=== PATIENT | female | born 1965 | race Two or more races ===

== ENCOUNTER 2024-10-19 13:36 | Outpatient (RCR) | payer MEDICAID, SELFPAY ==
--- NOTE | 2024-10-19 14:15 | PTNOTE_ITS ---
PT OP Initial Eval Patient Information Outpatient Physical Therapy Treatment Date: 10/19/24 Visit Reasons: pain right shoulder Medical Diagnosis: M75.31; M25.511 Treatment Dx #1: Right Shoulder Pain Treatment Dx #2: Right Shoulder Mobility Deficits Start of Care: 10/19/24 Date of Onset: 3 months ago Smoking Status Smoking Status: Never smoker Initial Assessment Subjective: Pt is a 59 y/o female reports of right shoulder pain (06/29) ~ 3 months ago after she hurt her shoulder at work. Pt has limitation with sleeping, chores, self care, cooking, cleaning, and work duties. 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 Pt will not benefit from physical therapy at this time. Recommend shoulder MRI to help rule in/out nature of pain. Pt was evaluated and d/c from care; thank you for your referrals. Short Term and Nursing Home Goals 1) Eval and D/C 2) Recommend shoulder MRI Treatment Plan Frequency and Duration: 1x Certification Dates: 10/19/24 to 01/17/25 Procedure Charges OP PT Eval Mod Complex 30 minutes: Yes
== END 2024-10-20 23:59 | disposition home or self-care (01) ==
LOC: CPTX 13:36
PROVIDERS: PCP Registered Nurse Community Health; Referring Provider Registered Nurse Community Health; Visit Provider Registered Nurse Community Health
DX: M25.511 Pain in right shoulder (principal); R53.1 Weakness; M75.31 Calcific tendinitis of right shoulder
CPT/HCPCS: 97162

== ENCOUNTER → 2024-11-13 | Outpatient (CLI) | payer MEDICAID, SELFPAY | END | disposition home or self-care (01) | PROVIDERS: PCP Registered Nurse Community Health; Referring Provider Registered Nurse Community Health; Visit Provider Registered Nurse Community Health | DX: Z53.8 Procedure and treatment not carried out for other reasons (principal) ==

== ENCOUNTER → 2025-01-18 | Outpatient (CLI) | payer MEDICAID, SELFPAY ==
--- NOTE | 2025-01-18 13:15 | XR_ITS ---
MRI shoulder, right, without contrast. Date and time: January 18, 2025 1247 hours INDICATIONS: Right shoulder pain 2 years Technique: Multiple axial, sagittal and coronal sections of the shoulder have been obtained. Siemens high-resolution 1.5 Saray MRI scanner is utilized. Axial fat-suppressed sections, TR 2350, TE 18 T2-weighted coronal fat-saturated images, TR 3500, TE 7100 T1-weighted coronal images, TR 500, TE 15 T2-weighted sagittal fat-saturated images, TR 3500, TE 57 T1-weighted sagittal sections, TR 504, TE 13. Findings: Supraspinatus tendon insertion is intact. Infraspinatus tendon insertion is intact. Subscapularis insertion is intact. Subscapularis bursa is not seen Long head of the biceps is in the bicipital groove. No definite tear of the biceps superior labral anchor is seen. Retraction of the musculotendinous junction of the rotator cuff is not seen . Tendinosis pattern is prominent. Distance between the acromium and humeral head is 8.5 mm Atrophy of the supraspinatus muscle is moderate. Atrophy of the infraspinatus muscle is moderate. Sagittal sections demonstrate a horizontal acromion. Acromioclavicular joint demonstrates mild osteoarthritis . Osacromiale is not identified. Anterior superior labral tears. Bony glenoid fossa on the sagittal sections does not demonstrate osseous defect. Occult fracture or area of avascular necrosis is not seen. Acromioclavicular joint separation is not visible. Defect in the posterolateral margin of the humeral head is not seen Impression: Right shoulder calcific tendinitis Significant rotator cuff tendinosis Anterior superior labral tears
== END | disposition home or self-care (01) ==
PROVIDERS: PCP Registered Nurse Community Health; Referring Provider Registered Nurse Community Health; Visit Provider Registered Nurse Community Health
DX: M75.31 Calcific tendinitis of right shoulder (principal); S43.431A Superior glenoid labrum lesion of right shoulder, initial encounter; X58.XXXA Exposure to other specified factors, initial encounter
CPT/HCPCS: 73221

== ENCOUNTER 2025-05-10 08:45 | Emergency (ER) | payer MEDICAID, SELFPAY ==
[2025-05-10 08:46] VITALS: BMI 32.9
[2025-05-10 08:54] VITALS: BP 138/82; PULSE 84; RESP 16; TEMP 37.2; O2SAT 97
--- NOTE | 2025-05-10 08:57 | PD.EDFALL ---
ED Fall Injury RME/HPI General Chief Complaint: Ankle/Foot Injury Stated Complaint: LEFT ANKLE INJURY Time Seen by Provider: 05/10/25 08:49 Arrival date/time: 05/10/25 08:45 Limitations: no limitations RME / HPI RME / HPI Narrative: DR. LISS DESAI ED EVALUATION: 60-year-old female with a past medical history of type 2 diabetes mellitus presents to the ED accompanied by her with left ankle pain following a fall while walking. Patient reports she tripped and fell but did not lose consciousness. She was assisted by a friend who helped her up. She is currently able to walk with pain. Denies head trauma or other injuries. Social history is negative for smoking, alcohol, or drug use. No known allergies. Related Data Previous Rx's ?Medication ?Instructions ?Recorded naproxen 500 mg tablet 500 mg PO BID PRN pain #30 tabs 07/06/19 hydrocodone 5 mg-acetaminophen 325 1 tab PO Q6H PRN pain #14 tabs 07/25/ mg tablet (Penrose) Allergies Allergy/AdvReac Type Severity Reaction Status Date / Time No Known Allergies Allergy Verified 05/10/25 08:48 Review of Systems Review of Systems Systems Reviewed: All systems reviewed, normal except as documented Past Medical History Past Medical History ENDOCRINE: Positive Diabetes Mellitus Type 2 Social History SMOKING STATUS: Never smoker SUBSTANCE USE: does not use ALCOHOL: Never ED Exam General Limitations: Present no limitations General appearance: Present alert and in no apparent distress Head Head exam: Present atraumatic, normocephalic and normal inspection Eye Eye exam: Present normal appearance, PERRL and EOMI ENT ENT exam: Present normal exam, normal oropharynx and mucous membranes moist Neck Neck exam: Present normal inspection, full ROM and trachea midline Chest Chest inspection: Present normal inspection and symmetric chest wall rise Respiratory Respiratory exam: Present normal lung sounds bilaterally Cardiovascular Cardiovascular exam: Present regular rate, normal rhythm and normal heart sounds Abdominal Exam Abdominal exam: Present soft and normal bowel sounds; Absent distention, tenderness, guarding, rebound or rigidity Extremities Exam Extremities exam: Present other (abrasion to the left lower leg; left ankle tenderness/ pain/ diminished ROM; NV is intact; no left knee or left hip involved and right extremity is also not involved, 2+ DP pulses bilateral lower extremity symmetric intact.) Back Exam Back exam: Present normal inspection and full ROM Neurological Exam Neurological exam: Present alert, oriented X3 and CN II-XII intact Psychiatric Psychiatric exam: Present normal affect and normal mood Skin Skin exam: Present warm, dry, intact and normal color Course Quality Measures none Orders Category Date Time Status Splint / Immobilizer STAT Care 05/10/25 14:29 Completed XR ankle comp LT min 3V Stat Exams 05/10/25 08:57 Completed XR tibia fibula LT 2V Stat Exams 05/10/25 08:57 Completed CBC Stat Lab 05/10/25 11:03 Completed CMP [Comprehensive Metabolic Panel] Stat Lab 05/10/25 11:03 Completed INR [Prothrombin Time with INR] Stat Lab 05/10/25 11:03 Completed Ketorolac Inj [Toradol Inj] Med 05/10/25 08:56 Discontinued 15 mg IM X1 ONE TET,DIP/PERT AC (Adult)-Tdap [Boostrix Adult (Tdap) Med 05/10/25 08:57 Discontinued Vacc] 0.5 ml IMI .ONCE ONE Vital Signs Vital signs: Vital Signs Temperature 99.0 F 05/10/25 08:54 Pulse Rate 84 05/10/25 08:54 Respiratory Rate 16 05/10/25 08:54 Blood Pressure 138/82 H 05/10/25 08:54 Pulse Oximetry (%) 97 05/10/25 08:54 Oxygen Delivery Method Room Air 05/10/25 08:54 Fall MDM Narrative MDM Narrative:: Kim Hernandez am scribing for and in the presence of Dr. Little. Patient is a 60-year-old female with medical history notable for diabetes is in emergency room with concerns for left lower leg pain after having had sustained a fall. Vital signs and exam as listed. Patient states that she did not have any prodromal symptoms prior to the fall, took a misstep and fell. Concern for fracture dislocation, soft tissue injury. Ordered medication for symptom relief, x-rays of the affected extremity. X-ray of the left lower extremity with evidence of trimalleolar fractures with mild ankle subluxation. Patient is neurovascularly intact. Given that we do not have orthopedic surgery coverage nor podiatry will initiate transfer. Will also place patient in a posterior short leg splint with stirrup. Transfer center discussed case with [facility] Dr. Alejandre, patient was accepted for transfer ED to ED. Patient data External records reviewed:: [facility] previous records Clinical information provided by:: patient and spouse Social determinants that could affect healthcare access:: none Patient has the following chronic illnesses:: type 2 diabetes mellitus How is presenting disease/condition affected by chronic disease/condition?: uneffected by Evaluation data The following diagnostics were reviewed and interpreted by me:: radiology exam(s) Lab and/or radiology exams considered but not ordered:: none Interpretation Summary: Procedure(s): XR tibia fibula LT 2V Accession Number(s): [id number] cc: Kurt Onofre MD; NO PRIMARY/FAMILY,PHYSICIAN; Asha Little MD~ Examination: Tibia-Fibula, left , 2 views Technique: Tibia-fibula AP lateral 2 views Date and time of exam: May 10, 2025 at 0947 hours INDICATIONS: Patient fell today with injury to the ankle, ankle pain. FINDINGS: Trimalleolar fractures with mild ankle subluxation Mid and proximal shafts of the tibia fibula intact IMPRESSION: Please see the ankle report for description trimalleolar fractures and ankle subluxation Dictated By: Kurt Onofre MD Procedure(s): XR ankle comp LT min 3V Accession Number(s): [id number] cc: Kurt Onofre MD; NO PRIMARY/FAMILY,PHYSICIAN; Asha Little MD~ EXAMINATION: Ankle, left 3 views . Technique: Ankle AP, oblique, lateral 3 views Date and time of exam: May 10, 2025 0947 hours INDICATIONS: Patient fell today with injury to the ankle, ankle pain. FINDINGS: Acute comminuted medial malleolar fracture, 5 mm offset of the main fracture fragments Acute fracture distal fibular shaft, up to 6 mm separation of the main fracture fragments Ankle subluxation with the distal articulating surface of the tibia mildly displaced medially relative to the dome the talus Suspicious for nondisplaced posterior malleolar fracture IMPRESSION: Trimalleolar fractures with mild ankle subluxation Dictated By: Kurt Onofre MD Medications / Prescriptions Medications or Prescriptions considered but not ordered:: none Medication administrations:: Medication Administration History Discontinued Medications Diphtheria/Tetanus/Acell Pertussis (Diphth,Pertuss(Acell),Tet Vac 0.5 Ml Syr- Adult) 0.5 ml IMi .ONCE ONE Stop: 05/10/25 08:58 Last Admin: 05/10/25 09:13 Dose: 0.5 ml Documented By: DODIE Ketorolac Tromethamine (Ketorolac Inj 60 Mg/2 Ml Vial) 15 mg IM X1 ONE Stop: 05/10/25 08:57 Last Admin: 05/10/25 09:10 Dose: 15 mg Documented By: DODIE see above Consultations Consultation(s) initiated? (list below): Yes Consultation #1 (Physician, Specialty, Details): See narrative above. Diagnosis Fall Differential Diagnosis: other (Left ankle sprain, distal fibula fracture, and soft tissue contusion.) Most likely diagnosis given after review of the tests above:: Trimalleolar left ankle fracture Admission Indicated Admission indicated?: not indicated Explain why admission is indicated or not indicated:: Patient needs higher level of care and will be transferred. Admission Request Was there a request for admission?: No Disposition Plan Disposition Plan: Transfer Critical Care Time Critical Care Time Critical Care Time: Yes Total Critical Care Time (min.): 45 Attestation: The high probability of sudden, clinically significant deterioration in the patient?s condition required the highest level of my preparedness to intervene urgently. The services I provided to this patient were to treat and/or prevent clinically significant deterioration. Services included the following: chart data review, reviewing nursing notes and/or old charts, documentation time, business analysis consultant collaboration regarding findings and treatment options, medication orders and management, direct patient care, vital sign assessments and ordering, interpreting and reviewing diagnostic studies and lab tests. Aggregate critical care time includes only time during which I was engaged in work directly related to the patient?s care, as described above, whether at bedside or elsewhere in the Emergency Department. It did not include time spent performing other reported procedures or the services of residents, students, nurses or physician assistants. Discharge Plan Plan Patient Disposition: [facility] [place] Facility Pt Being Transferred to: [facility] Service Needed for Transfer: Orthopedics Prescriptions/Referrals Prescriptions/Med Rec: No Action naproxen 500 mg tablet 500 mg PO BID PRN (Reason: pain) Qty: 30 0RF hydrocodone-acetaminophen [[place]rose] 5-325 mg tablet 1 tab PO Q6H MDD 3 PRN (Reason: pain) Qty: 14 0RF Referrals: No Primary/Family,Physician [Primary Care Provider] - In 1 week Problem List Clinical Impression: Trimalleolar fracture of left ankle Patient/Caregiver Discharge Instructions Print Language: Nigerien Stand Alone Forms: Cherelle Award Info., Patient Portal Info Letter
[2025-05-10] MEDS: KETOROLAC INJ 60 MG/2 ML VIAL 15 MG IM (09:10)
[2025-05-10] MEDS: DIPHTH,PERTUSS(ACELL),TET VAC 0.5 ML SYR- ADULT IMi (09:13)
--- NOTE | 2025-05-10 11:20 | PC.CC ---
Addendum entered by Talya Sprague RN 05/10/25 17:14: 1712 received call from [facility] at [facility] for extension of the peanut picker. New peanut picker time is 1830. Addendum entered by Talya Sprague RN 05/10/25 15:35: 1534 called [facility], spoke to Summer and informed peanut picker time is 1730. Addendum entered by Talya Sprague RN 05/10/25 15:29: 1520 sent paperwork to [facility] through [employer]. Called [facility], spoke to [facility] and set up the transport. The peanut picker time is 1730. Addendum entered by Talya Sprague RN 05/10/25 15:24: 1500 transfer packet is complete with CD inside including all signatures. Notified bedside nurse of the transfer packet and number to call for report. Informed Dr. Little, charge nurse and pt to be NPO per Dr. Alejandre orders. [address] Little pt is accepted at [facility] for ER to ER. Addendum entered by Talya Sprague RN 05/10/25 15:22: [address] Alejandre wants the pt to be NPO. Addendum entered by Talya Sprague RN 05/10/25 14:14: 1402 received call from [facility] at [facility] that pt is accepted. Accepted by Dr. Alejandre for ER to ER transfer. Call report at [phone]. Addendum entered by Talya Sprague RN 05/10/25 13:21: 1320 Called [facility], spoke to Summer and initiated the transfer. Addendum entered by Talya Sprague RN 05/10/25 13:19: 1318 called [facility] to initiated the transfer, left VM. Addendum entered by Talya Sprague RN 05/10/25 13:14: 1314 images pushed over to [facility] via [employer]. Original Note: 1300 clinicals sent to [facility] and [facility] TC. [address] Little that pt needs to be transferred for trimalleolar fractures and ankle subluxation needs podiatry services.
[2025-05-10 11:42] LABS: Basophils # (Auto) 0.0 Thou/mm3 (0.0-0.2); Basophils % (Auto) 0 % (0-2.5); Eosinophils # (Auto) 0.2 Thou/mm3 (0.0-0.5); Eosinophils % (Auto) 2 % (0-10); Hematocrit 42.0 % (36.0-46.0); Hemoglobin 13.7 g/dL (12.0-16.0); Immature Granulocytes Auto 0.05 Thou/mm3 (0.00-0.00); Lymphocytes # (Auto) 1.7 Thou/mm3 (1.0-4.8); Lymphocytes % (Auto) 15 % (10-50); Mean Corpuscular HGB Conc 32.6 g/dl (31.0-37.0); Mean Corpuscular Hemoglobin 30.4 pg (25.0-35.0); Mean Corpuscular Volume 93 fL (80-100); Monocytes # (Auto) 0.7 Thou/mm3 (0.0-0.8); Monocytes % (Auto) 6 % (0-12); Neutrophils # (Auto) 8.8 Thou/mm3 (1.8-7.7); Neutrophils % (Auto) 77 % (37-80); Nucleated Red Blood Cell # 0.00 Thou/mm3 (0.00-0.00); Nucleated Red Blood Cell % 0 /100 WBC (0); Platelet Count 179 Thou/mm3 (140-440); RDW Standard Deviation 48.4 fL (36.4-46.3); Red Blood Count 4.51 Miln/mm3 (4.00-5.20); White Blood Count 11.4 Thou/mm3 (3.6-11.0)
[2025-05-10 12:01] LABS: INR 1.0 (0.9-1.3); Prothrombin Time 10.9 Seconds (9.0-12.2)
[2025-05-10 12:05] LABS: Alanine Aminotransferase 33 U/L (10-49); Albumin, Serum 4.5 gm/dL (3.4-4.8); Albumin/Globulin Ratio 1.8 (1.2-2.2); Alkaline Phosphatase 92 U/L (46-116); Anion Gap 10 (7-16); Aspartate Amino Transferase 26 U/L (0-34); BUN/Creatinine Ratio 14 Ratio (12-20); Bilirubin,Total 0.9 mg/dL (0.3-1.2); Blood Urea Nitrogen 11 mg/dL (9-23); Calcium 10.1 mg/dL (8.3-10.6); Calcium (Corrected) 10.1 mg/dL (8.5-10.1); Carbon Dioxide 27.7 mMol/L (20.0-31.0); Chloride 104 mMol/L (98-107); Creatinine (Component) 0.8 mg/dL (0.6-1.3); Estimated Creatinine Clearance 74.0 mL/min (>60); Globulin 2.5 gm/dL (2.3-3.5); Glucose 117 mg/dL (74-106); Osmolality,Calculated 283 (275-295); Potassium 4.2 mMol/L (3.4-5.1); Sodium 142 mMol/L (136-145); Total Protein 7.0 gm/dL (5.7-8.2); eGFR > 60 See Note
[2025-05-10 16:05] VITALS: BP 146/94; PULSE 87; RESP 19; O2SAT 97
--- NOTE | 2025-05-10 16:18 | PC.NURSE ---
TELEPHONE REPORT GIVEN TO DANNIELLE OSEI AT [facility].
[2025-05-10 17:57] VITALS: BP 146/81; PULSE 89; RESP 18; TEMP 36.6; O2SAT 96
== END 2025-05-10 18:30 | disposition short-term general hospital (02) ==
PROVIDERS: Emergency Provider Emergency Medicine
DX: S82.852A Displaced trimalleolar fracture of left lower leg, initial encounter for closed fracture (principal); E11.9 Type 2 diabetes mellitus without complications; Z23 Encounter for immunization; W01.0XXA Fall on same level from slipping, tripping and stumbling without subsequent striking against object, initial encounter
CPT/HCPCS: 29515; 36415; 73590; 73610; 80053; 85025; 85610; 90471; 90715; 99283; J1885

== ENCOUNTER 2025-08-09 14:42 | Emergency (ER) | payer MEDICAID, SELFPAY ==
[2025-08-09 14:43] VITALS: BMI 30.1
[2025-08-09 15:03] VITALS: BP 113/73; PULSE 107; RESP 18; TEMP 36.9; O2SAT 96
--- NOTE | 2025-08-09 15:26 | XR_ITS ---
EXAMINATION: Ankle, left 3 views. Technique: Ankle AP, oblique, lateral 3 views Date and time of exam: August 09, 2025, 1547 hours, comparison May 10, 2025 INDICATIONS: Painful ankle 3 months post surgery. FINDINGS: Operative reduction internal fixation of bimalleolar fractures with partial healing Bone detail appears significantly reduced around the fibular fracture IMPRESSION: Consider CT scan ankle follow-up to exclude osteomyelitis involving the distal fibular shaft
[2025-08-09 16:02] LABS: Lactate (Lactic Acid) 1.0 mMol/L (0.4-2.0)
[2025-08-09 16:14] LABS: Basophils # (Auto) 0.0 Thou/mm3 (0.0-0.2); Basophils % (Auto) 0 % (0-2.5); Eosinophils # (Auto) 0.3 Thou/mm3 (0.0-0.5); Eosinophils % (Auto) 4 % (0-10); Hematocrit 36.7 % (36.0-46.0); Hemoglobin 11.6 g/dL (12.0-16.0); Immature Granulocytes Auto 0.02 Thou/mm3 (0.00-0.00); Lymphocytes # (Auto) 1.8 Thou/mm3 (1.0-4.8); Lymphocytes % (Auto) 25 % (10-50); Mean Corpuscular HGB Conc 31.6 g/dl (31.0-37.0); Mean Corpuscular Hemoglobin 27.9 pg (25.0-35.0); Mean Corpuscular Volume 88 fL (80-100); Monocytes # (Auto) 0.6 Thou/mm3 (0.0-0.8); Monocytes % (Auto) 8 % (0-12); Neutrophils # (Auto) 4.4 Thou/mm3 (1.8-7.7); Neutrophils % (Auto) 62 % (37-80); Nucleated Red Blood Cell # 0.00 Thou/mm3 (0.00-0.00); Nucleated Red Blood Cell % 0 /100 WBC (0); Platelet Count 287 Thou/mm3 (140-440); RDW Standard Deviation 47.1 fL (36.4-46.3); Red Blood Count 4.16 Miln/mm3 (4.00-5.20); White Blood Count 7.0 Thou/mm3 (3.6-11.0)
[2025-08-09 16:27] LABS: INR 1.0 (0.9-1.3); Partial Thromboplastin Time 29.3 Seconds (22.0-36.0); Prothrombin Time 10.6 Seconds (9.0-12.2)
[2025-08-09 16:28] LABS: Alanine Aminotransferase 20 U/L (10-49); Albumin, Serum 4.6 gm/dL (3.4-4.8); Albumin/Globulin Ratio 1.4 (1.2-2.2); Alkaline Phosphatase 97 U/L (46-116); Anion Gap 10 (7-16); Aspartate Amino Transferase 23 U/L (0-34); BUN/Creatinine Ratio 20 Ratio (12-20); Bilirubin,Total 0.4 mg/dL (0.3-1.2); Blood Urea Nitrogen 12 mg/dL (9-23); C-Reactive Protein 2.8 mg/dL (0.0-0.9); Calcium 9.6 mg/dL (8.3-10.6); Calcium (Corrected) 9.6 mg/dL (8.5-10.1); Carbon Dioxide 26.3 mMol/L (20.0-31.0); Chloride 105 mMol/L (98-107); Creatinine (Component) 0.6 mg/dL (0.6-1.3); Estimated Creatinine Clearance 98.0 mL/min (>60); Globulin 3.2 gm/dL (2.3-3.5); Glucose 187 mg/dL (74-106); Osmolality,Calculated 285 (275-295); Potassium 4.1 mMol/L (3.4-5.1); Procalcitonin 0.04 ng/ml (0.0-0.49); Sodium 141 mMol/L (136-145); Total Protein 7.8 gm/dL (5.7-8.2); eGFR > 60 See Note
--- NOTE | 2025-08-09 16:53 | EDNOTE_ITS ---
Lower Extremity Injury RME/HPI General Chief Complaint: Ankle/Foot Injury Stated Complaint: L ANKLE PAIN Time Seen by Provider: 08/09/25 16:31 Arrival date/time: 08/09/25 14:42 60-year-old female patient with significant history of diabetes mellitus, came in for evaluation regarding wound check. Patient had 2 surgeries [id number] for bimalleolar fracture left ankle, in [place], since then patient wound is not completely healed, this time associated with pain and discomfort. Patient is not having any fever. Was seen by orthopedic surgeon who did her last surgery, more than a week ago and was advised to go to tower air traffic control specialist. Currently patient is not taking antibiotic. Patient also ran out of pain medication. No other complaints noted. Related Data Previous Rx's ?Medication ?Instructions ?Recorded naproxen 500 mg tablet 500 mg PO BID PRN pain #30 t abs 07/06/19 hydrocodone 5 mg-acetaminophen 325 1 tab PO Q6H PRN pa in #14 tabs 07/25/19 mg tablet ([place]) acetaminophen 300 mg-codeine 30 mg 1 tab PO TID PRN pa in #20 tabs 08/09/25 tablet sulfamethoxazole 800 1 tab PO BID #14 tabs mg-trimethoprim 160 mg tablet (Bactrim DS) Allergies Allergy/AdvReac Type Severity Reaction Status Date / Time No Known Allergies Allergy Verified 08/09/25 14:45 Review of Systems Review of Systems Narrative Review of Systems: Review of system reviewed and within normal limits except mentioned in HPI ED Exam Narrative Physical exam: VITAL SIGNS: Reviewed. GENERAL APPEARANCE: Alert and interactive, follows commands, no acute distress, HEAD AND FACE: Non-traumatic. ENT: PERRL, pink conjunctivitis, eyelid no trauma, Mucous membrane moist. NECK: Supple, nontender, no nuchal rigidity. CHEST: No tenderness, no crepitus, no paradoxical movement, no retractions. LUNGS: Clear, well ventilated, symmetric, no rales, no wheezing, no ronchi, no stridor, good breath sounds bilaterally. HEART: Regular rate, regular rhythm, no murmur, no gallops. ABDOMEN: Soft, positive bowel sounds, nondistended, no guarding, nontender, no rebound, no masses, RECTAL: Deferred. GENITAL: Deferred. NEUROLOGICAL: Gross motor function intact sensory function intact, Appropriate for age. MUSCULOSKELETAL: low back nontender, full range of motion. EXTREMITIES: Bilateral open wound to the lateral malleolus and medial malleolus, no exposure of the bone or implant. Limited range of motion. No drainage noted SKIN: Color pink, dry, no rash, no lacerations, no abrasions, no contusions. LYMPHATICS: Deferred. Course Quality Measures none Orders Category Date Time Status Wound Care NOW Care 08/09/25 15:26 Active XR ankle comp LT min 3V Stat Exams 08/09/25 15:26 Completed Blood Culture (Lab) Stat Lab 08/09/25 15:52 Received CBC Stat Lab 08/09/25 15:48 Results CMP [Comprehensive Metabolic Panel] Stat Lab 08/09/25 15:48 Completed CRP [C-Reactive Protein] Stat Lab 08/09/25 15:48 Completed ESR [Sed Rate (ESR)] Stat Lab 08/09/25 15:48 Results Lactic Acid [Lactate (Lactic Acid)] Stat Lab 08/09/25 15:48 Completed PT [Prothrombin Time with INR] Stat Lab 08/09/25 15:48 Completed PTT [Partial Thromboplastin Time] Stat Lab 08/09/25 15:48 Completed Procalcitonin Stat Lab 08/09/25 15:48 Completed HYDROcodone/APAP 10/325 [[place] 10/325] Med 08/09/25 16:51 Once 1 tab PO X1 ONE Trimethoprim/Sulfa 160/800 Ds [Bactrim Ds] Med 08/09/25 16:51 Once 1 tab PO X1 ONE Vital Signs Vital signs: Vital Signs Temperature 98.5 F 08/09/25 15:03 Pulse Rate 107 H 08/09/25 15:03 Respiratory Rate 18 08/09/25 15:03 Blood Pressure 113/73 08/09/25 15:03 Pulse Oximetry (%) 96 08/09/25 15:03 Oxygen Delivery Method Room Air 08/09/25 15:03 Extremity Injury, Lower MDM Narrative MDM Narrative:: 60-year-old female patient with significant history of diabetes mellitus, came in for evaluation regarding wound check. Patient had 2 surgeries [id number] for bimalleolar fracture left ankle, in [place], since then patient wound is not completely healed, this time associated with pain and discomfort. Patient is not having any fever. Was seen by orthopedic surgeon who did her last surgery, more than a week ago and was advised to go to tower air traffic control specialist. Currently patient is not taking antibiotic. Patient also ran out of pain medication. No other complaints noted. Patient's workup is unremarkable, no leukocytosis noted, the only abnormality noted was a blood sugar of 187 patient is diabetic and C-reactive 2.8 x-ray of the ankle showed possible early osteomyelitis of the distal fibula. Family consulted the clinic and had an appointment this coming Wednesday at 9:30 AM. I decided to start the patient on Bactrim and [place]. Patient stable for discharge home Patient data External records reviewed:: None Clinical information provided by:: patient and family Social determinants that could affect healthcare access:: none Patient has the following chronic illnesses:: Diabetes mellitus How is presenting disease/condition affected by chronic disease/condition?: exacerbated by Evaluation data The following diagnostics were reviewed and interpreted by me:: lab results and radiology exam(s) Lab and/or radiology exams considered but not ordered:: None Interpretation Summary: See above Medications / Prescriptions Medications or Prescriptions considered but not ordered:: None Medication administrations:: Medication Administration History Discontinued Medications Hydrocodone Bitart/Acetaminophen (Hydrocodone/Apap 10/325 Tab) 1 tab PO X1 ONE Stop: 08/09/25 16:52 Trimethoprim/Sulfamethoxazole (Trimethoprim/Sulfa 160/800 Ds Tablet) 1 tab PO X1 ONE Stop: 08/09/25 16:52 [place] Bactrim Consultations Consultation(s) initiated? (list below): No Diagnosis Extremity Injury, Lower Differential Diagnosis: ankle sprain and strain and other (Wound check, surgical wound infection status post ORIF bimalleolar left ankle) Most likely diagnosis given after review of the tests above:: Wound check, status post ORIF bimalleolar ankle Admission Indicated Admission indicated?: not indicated Admission Request Was there a request for admission?: No Disposition Plan Disposition Plan: Discharge Discharge Attestation Discharge Attestation: The patient and all family members were given an opportunity to ask questions and understood the discharge instructions. Discharge instructions specifically effects, indications for sooner follow up or return to the emergency department, and the expected course of current diagnosis. Patient condition: Stable Discharge Plan Plan Patient Disposition: HOME (Self Care) Discharge Disposition comment: Stable Prescriptions/Referrals Prescriptions/Med Rec: New sulfamethoxazole-trimethoprim [Bactrim DS] 800-160 mg tablet 1 tab PO BID Qty: 14 0RF acetaminophen-codeine 300-30 mg tablet 1 tab PO TID PRN (Reason: pain) Qty: 20 0RF No Action naproxen 500 mg tablet 500 mg PO BID PRN (Reason: pain) Qty: 30 0RF hydrocodone-acetaminophen [[place]] 5-325 mg tablet 1 tab PO Q6H MDD 3 PRN (Reason: pain) Qty: 14 0RF Referrals: No Primary/Family,Physician [Primary Care Provider] - In 1 week Problem List Clinical Impression: Visit for wound check Patient/Caregiver Discharge Instructions Discharge Activity: activity as tolerated Education Materials: ED Wound Check (Infection) Additional Instructions: Thank you for the opportunity for serving you today. You are stable for discharged . You are advised to: Follow-up with your orthopedic surgeon next week Return to ED for worsening of symptoms Increase oral fluids Take medication as prescribed Print Language: Hungarian Stand Alone Forms: Cherelle Award Info., Patient Portal Info Letter SHAW/WILIAN Supervising Physician SHAW/WILIAN Supervising Physician: MD Gabriel
[2025-08-09 17:08] LABS: Sed Rate (ESR) 96 mm/hr (0-30)
[2025-08-09] MEDS: TRIMETHOPRIM/SULFA 160/800 DS TABLET 1 TAB PO (17:14)
[2025-08-09 17:46] VITALS: BP 124/82; PULSE 87
== END 2025-08-09 17:46 | disposition home or self-care (01) ==
PROVIDERS: Nurse Practitioner Primary Care; Emergency Provider Nurse Practitioner Family
DX: Z48.00 Encounter for change or removal of nonsurgical wound dressing (principal)
CPT/HCPCS: 36415; 73610; 80053; 83605; 84145; 85025; 85610; 85652; 85730; 86140; 87040; 99283; A9270

== ENCOUNTER → 2025-08-24 | Outpatient (CLI) | payer OTHER, SELFPAY | END | disposition home or self-care (01) | PROVIDERS: Visit Provider Surgery | DX: T81.89XA Other complications of procedures, not elsewhere classified, initial encounter (principal); S91.002A Unspecified open wound, left ankle, initial encounter; X58.XXXA Exposure to other specified factors, initial encounter; I10 Essential (primary) hypertension; E11.69 Type 2 diabetes mellitus with other specified complication; Z79.4 Long term (current) use of insulin; E78.5 Hyperlipidemia, unspecified; Z79.84 Long term (current) use of oral hypoglycemic drugs; Z87.891 Personal history of nicotine dependence | CPT/HCPCS: 11042; 11045; 99212; A9270; G0463 ==

== ENCOUNTER → 2025-08-31 | Outpatient (CLI) | payer MEDICAID, SELFPAY | END | disposition home or self-care (01) | PROVIDERS: Visit Provider Surgery | DX: T81.89XA Other complications of procedures, not elsewhere classified, initial encounter (principal); S91.002A Unspecified open wound, left ankle, initial encounter; X58.XXXA Exposure to other specified factors, initial encounter; I10 Essential (primary) hypertension; E11.69 Type 2 diabetes mellitus with other specified complication; Z79.4 Long term (current) use of insulin; E78.5 Hyperlipidemia, unspecified; Z79.84 Long term (current) use of oral hypoglycemic drugs; Z87.891 Personal history of nicotine dependence | CPT/HCPCS: 11042; A9270 ==

== ENCOUNTER → 2025-09-07 | Outpatient (CLI) | payer OTHER, SELFPAY | END | disposition home or self-care (01) | LOC: SWHD 14:06 | PROVIDERS: Visit Provider Surgery | DX: T81.89XA Other complications of procedures, not elsewhere classified, initial encounter (principal); S91.002A Unspecified open wound, left ankle, initial encounter; X58.XXXA Exposure to other specified factors, initial encounter; I10 Essential (primary) hypertension; E11.69 Type 2 diabetes mellitus with other specified complication; Z79.4 Long term (current) use of insulin; E78.5 Hyperlipidemia, unspecified; Z79.84 Long term (current) use of oral hypoglycemic drugs; Z87.891 Personal history of nicotine dependence | CPT/HCPCS: 97597; 11042 ==

== ENCOUNTER → 2025-09-14 | Outpatient (CLI) | payer OTHER, SELFPAY | END | disposition home or self-care (01) | PROVIDERS: Visit Provider Surgery | DX: T81.89XA Other complications of procedures, not elsewhere classified, initial encounter (principal); S91.002A Unspecified open wound, left ankle, initial encounter; X58.XXXA Exposure to other specified factors, initial encounter; Z79.4 Long term (current) use of insulin; Z79.84 Long term (current) use of oral hypoglycemic drugs; Z87.891 Personal history of nicotine dependence; E78.5 Hyperlipidemia, unspecified; E11.69 Type 2 diabetes mellitus with other specified complication | CPT/HCPCS: 11042; A9270 ==